=== PATIENT | male | born 1990 | race Caucasian/White ===

== ENCOUNTER 2017-11-27 12:27 | Emergency (ER) | payer OTHER ==
--- NOTE | 2017-11-27 13:09 | EDM.PDOC ---
ED HPI GENERAL MEDICAL PROBLEM - General Chief Complaint: Flank Pain Stated Complaint: KIDNEY PAIN SENT BY [facility] Time Seen by Provider: 11/27/17 12:46 Source of Information: Reports: Patient History Limitations: Reports: No Limitations - History of Present Illness INITIAL COMMENTS - FREE TEXT/NARRATIVE: 27 year old male presents for evaluation and treatment of left-sided flank pain. Patient reports he first started having bilateral flank pain about 2 or 3 days ago. He states that the pain comes and goes and is worse in the evening. He states that at night he can not sit down and can not get comfortable due to the pain. Is now located just on the left side. He denies any associated fevers , dysuria, hematuria, nausea, vomiting, diarrhea or constipation. He states he was ill with a cold on Wednesday and had some fevers and chills but his symptoms have resolved. reports that he did have some riggors last night. Past surgical history includes an appendectomy. Patient denies any history of kidney stones. Patient was seen at the [facility] prior to coming to the ER. He had labs including a UA and CBC done. UA showed a small amount of blood. Hemoglobin was 14.5, white blood cell count 8.4 and platelets 185. Was sent to us for a CT scan. Duration: Day(s): (3) Lower Back Pain Score (Numeric/FACES): 4 - Related Data Allergies Allergy/AdvReac Type Severity Reaction Status Date / Time No Known Allergies Allergy Verified 11/27/17 12:36 Home Meds: Home Meds . [No Known Home Meds] 11/27/17 [History] Past Medical History - Past Surgical History GI Surgical History: Reports: Appendectomy Social & Family History - Tobacco Use Smoking Status *Q: Never Smoker - Caffeine Use Caffeine Use: Reports: Coffee - Recreational Drug Use Recreational Drug Use: No ED ROS GENERAL - Review of Systems Review Of Systems: See Below Constitutional: Reports: Chills. Denies: Fever GI/Abdominal: Denies: Abdominal Pain, Constipation, Diarrhea, Nausea, Vomiting : Reports: Flank Pain (left). Denies: Dysuria, Hematuria Musculoskeletal: Reports: Back Pain (left mid back) ED EXAM, RENAL/ - Physical Exam Exam: See Below Exam Limited By: No Limitations General Appearance: Alert, WD/WN, No Apparent Distress Ears: Normal External Exam Nose: Normal Inspection Throat/Mouth: Normal Inspection, Normal Lips, Normal Voice, No Airway Compromise Respiratory/Chest: No Respiratory Distress, Lungs Clear, Normal Breath Sounds Cardiovascular: Normal Peripheral Pulses, Regular Rate, Rhythm, No Murmur GI/Abdominal: Normal Bowel Sounds, Soft, Non-Tender. No: Distended, Rebound Back Exam: Normal Inspection, CVA Tenderness (L). No: CVA Tenderness (R) Neurological: Alert, Oriented, Normal Cognition Psychiatric: Normal Affect, Normal Mood Skin Exam: Warm, Dry, No Rash Course - Vital Signs Last Recorded V/S: Last Vital Signs Temp 36.3 C 11/27/17 12:33 Pulse 81 11/27/17 12:33 Resp 16 11/27/17 12:33 BP 163/104 H 11/27/17 12:33 Pulse Ox 99 11/27/17 12:33 - Radiology Interpretation Free Text/Narrative:: CT abdomen and pelvis Technique: Multiple axial sections were obtained from above the kidneys inferiorly through the pubic symphysis. Intravenous and oral contrast not utilized. Study has been performed as a ureteral stone protocol. Comparison: No prior abdominal imaging. Findings: Right and left kidneys showed no hydronephrosis. No abnormal calcifications are seen along the course of the ureters. No bladder calculi are seen. No renal calculi are seen. Visualized lung bases are clear. Visualized noncontrast appearance of the liver and spleen appears within normal limits. Adrenal glands show no nodule. Pancreas appears within normal limits. Aorta shows no aneurysmal dilatation. Gallbladder contains no calcified gallstones. No retroperitoneal adenopathy or mesenteric abnormalities are seen. No pelvic mass or adenopathy is seen. No free fluid or inflammatory change is seen. Appendix not visualized with certainty. Small mesenteric lymph nodes are seen which are felt to be within normal limits. Mild increased stool is seen throughout the colon. Bone window settings were reviewed which show scoliosis with spine. Osseous structures otherwise are within normal limits for the patient's age. Impression: 1. No renal calculi, ureteral dilatation or ureteral stone is seen. 2. Mild increased stool is seen throughout the colon. Mild scoliosis is present within the spine. 3. No additional abnormality is seen on noncontrast CT study of the abdomen performed as a ureteral stone protocol. - Re-Assessments/Exams Free Text/Narrative Re-Assessment/Exam: 11/27/17 14:[address] results with the patient. Will discharge him home at this time. Discharge instructions as documented. Departure - Departure Time of Disposition: 14:31 Disposition: Home, Self-Care 01 Condition: Good Clinical Impression: Constipation - Discharge Information Referrals: PCP,None [Primary Care Provider] - Forms: ED Department Discharge Additional Instructions: Drink one bottle of magnesium citrate over 1-2 hours. This is available OTC. This can cause some abdominal cramping. You should have 1-2 large bowel movements after drinking this. Drink plenty of fluids. For daily bowel maintenance, recommend miralax daily. This is also available OTC. Follow-up with family medicine if your symptoms do not improve. Please return to the ER should your symptoms change or worsen.
--- NOTE | 2017-11-27 14:10 | CT ---
CT abdomen and pelvis Technique: Multiple axial sections were obtained from above the kidneys inferiorly through the pubic symphysis. Intravenous and oral contrast not utilized. Study has been performed as a ureteral stone protocol. Comparison: No prior abdominal imaging. Findings: Right and left kidneys showed no hydronephrosis. No abnormal calcifications are seen along the course of the ureters. No bladder calculi are seen. No renal calculi are seen. Visualized lung bases are clear. Visualized noncontrast appearance of the liver and spleen appears within normal limits. Adrenal glands show no nodule. Pancreas appears within normal limits. Aorta shows no aneurysmal dilatation. Gallbladder contains no calcified gallstones. No retroperitoneal adenopathy or mesenteric abnormalities are seen. No pelvic mass or adenopathy is seen. No free fluid or inflammatory change is seen. Appendix not visualized with certainty. Small mesenteric lymph nodes are seen which are felt to be within normal limits. Mild increased stool is seen throughout the colon. Bone window settings were reviewed which show scoliosis with spine. Osseous structures otherwise are within normal limits for the patient's age. Impression: 1. No renal calculi, ureteral dilatation or ureteral stone is seen. 2. Mild increased stool is seen throughout the colon. Mild scoliosis is present within the spine. 3. No additional abnormality is seen on noncontrast CT study of the abdomen performed as a ureteral stone protocol. Diagnostic code #2
== END 2017-11-27 14:45 | disposition home or self-care (01) ==
LOC: JD.ED 12:27
DX: K59.00 Constipation, unspecified (principal)
CPT/HCPCS: 74176; 74176-26; 99283; 99284-25

== ENCOUNTER 2017-11-29 17:56 | Emergency (ER) | payer OTHER ==
--- NOTE | 2017-11-29 20:29 | EDM.PDOC ---
ED HPI GENERAL MEDICAL PROBLEM - General Chief Complaint: Abdominal Pain Stated Complaint: CONSTIPATION Time Seen by Provider: 11/29/17 19:36 Source of Information: Reports: Patient, Old Records, Significant Other ( Girlfriend) History Limitations: Reports: No Limitations - History of Present Illness INITIAL COMMENTS - FREE TEXT/NARRATIVE: The patient states that he has had low back pain since , 11/25/2017. He was seen in this ED on 11/27/2017, where a CT scan of the abdomen and pelvis without contrast revealed mild increased stool throughout the colon. The patient was discharged home. He states that he drank a whole bottle of magnesium citrate that same day, along with milk of magnesia, then drank a second bottle of magnesium citrate yesterday, 11/28/2017. He states that he had some stool output, but not a lot. He now re-presents to the ED complaining of continued lower abdominal and low back pain. His abdominal pain is crampy in character. It waxes and wanes. He has not identified any modifiers. He denies having any nausea or vomiting. No recent fever. No urinary symptoms. The patient does not have a PCP. Abdominal Pain Score (Numeric/FACES): 6 - Related Data Allergies Allergy/AdvReac Type Severity Reaction Status Date / Time No Known Allergies Allergy Verified 11/29/17 18:35 Home Meds: Home Meds . [No Known Home Meds] 11/27/17 [History] Past Medical History - Past Surgical History GI Surgical History: Reports: Appendectomy Social & Family History - Tobacco Use Smoking Status *Q: Never Smoker Second Hand Smoke Exposure: No - Caffeine Use Caffeine Use: Reports: Coffee - Recreational Drug Use Recreational Drug Use: No ED ROS GENERAL - Review of Systems Review Of Systems: ROS reveals no pertinent complaints other than HPI. ED EXAM, GI/ABD - Physical Exam Exam: See Below Exam Limited By: No Limitations General Appearance: Alert, WD/WN, No Apparent Distress Eyes: Bilateral: Normal Appearance, EOMI Ears: Normal External Exam, Hearing Grossly Normal Nose: Normal Inspection, No Blood Throat/Mouth: Normal Inspection, Normal Lips, Normal Voice, No Airway Compromise Head: Atraumatic, Normocephalic Neck: Normal Inspection, Full Range of Motion Respiratory/Chest: No Respiratory Distress, Lungs Clear, Normal Breath Sounds, No Accessory Muscle Use Cardiovascular: Normal Peripheral Pulses, Regular Rate, Rhythm, No Gallop, No JVD, No Murmur, No Rub GI/Abdominal Exam: Normal Bowel Sounds, Soft, Non-Tender (including to the lower abdomen), No Organomegaly, No Distention, No Abnormal Bruit, No Mass (Male) Exam: Deferred Rectal (Males) Exam: Deferred Back Exam: Normal Inspection, Full Range of Motion. No: CVA Tenderness (L), CVA Tenderness (R) Extremities: Normal Inspection, Normal Range of Motion, No Pedal Edema, Normal Capillary Refill Neurological: Alert, Oriented, Normal Cognition, No Motor/Sensory Deficits Psychiatric: Normal Affect Skin Exam: Warm, Dry, Intact, Normal Color, No Rash Course - Vital Signs Last Recorded V/S: Last Vital Signs Temp 36.5 C 11/29/17 18:32 Pulse 68 11/29/17 18:32 Resp 18 11/29/17 18:32 BP 125/78 11/29/17 18:32 Pulse Ox 99 11/29/17 18:32 - Re-Assessments/Exams Free Text/Narrative Re-Assessment/Exam: 11/29/17 20:22 Upright abdominal film appears to demonstrate numerous air-fluid levels in a stepwise pattern, consistent with a small bowel obstruction. No significant stool is seen. Formal read per the Radiologist pending. 11/29/17 20:29 X-ray results discussed with the patient and his girlfriend. The patient has not had any nausea or emesis, just abdominal pain. He likely has an early or partial SBO. I offered to admit the patient for IV fluid, ambulation of the halls, and surgical consult, should his symptoms worsen, however, the patient would prefer to go home. I'm recommending that he eat a low fiber diet presently. The patient agrees to return to the ED if his symptoms worsen. Departure - Departure Time of Disposition: 20:30 Disposition: Home, Self-Care 01 Condition: Fair Clinical Impression: Partial small bowel obstruction - Discharge Information Instructions: Small Bowel Obstruction, [id number] Referrals: PCP,None [Primary Care Provider] - Forms: ED Department Discharge Additional Instructions: You were seen in the emergency room for continued lower abdominal pain. Workup in the ER included x-rays of your abdomen, which appear to show either an early small bowel obstruction, or a partial small bowel obstruction. You were offered admission to the hospital, but declined. Stay adequately hydrated, and eat a low-fiber diet until your symptoms resolve. Stay active. Walking is best. If your symptoms worsen, or if you develop nausea/vomiting, please return to the ER for further evaluation.
--- NOTE | 2017-11-30 10:28 | CR ---
Abdomen: Upright view of the abdomen was obtained. Comparison: No prior abdominal x-ray, previous noncontrast CT renal stone study of 11/27/17. Air-fluid levels are identified within the colon and within small bowel. No significant bowel dilatation is seen. No abnormal calcifications or free air is identified. Mild scoliosis is noted within the spine. Impression: 1. Air-fluid levels within colon and small bowel. These are nonspecific and may be incidental if patient has no symptoms of gastroenteritis or diarrhea. 2. Other incidental findings. Diagnostic code #3
== END 2017-11-29 20:40 | disposition home or self-care (01) ==
LOC: JD.ED 17:56
DX: K56.600 Partial intestinal obstruction, unspecified as to cause (principal)
CPT/HCPCS: 74018; 74018-26; 99283

== ENCOUNTER 2021-05-06 22:06 | Emergency (ER) | payer OTHER ==
--- NOTE | 2021-05-06 23:11 | EDM.PDOC ---
ED HPI GENERAL MEDICAL PROBLEM - General Chief Complaint: Upper Extremity Injury/Pain Stated Complaint: SMASHED FINGER ON LEFT HAND Time Seen by Provider: 05/06/21 22:48 Source of Information: Reports: Patient History Limitations: Reports: No Limitations - History of Present Illness INITIAL COMMENTS - FREE TEXT/NARRATIVE: Mr. Beach is a very pleasant 31-year-old gentleman who now presents the ED after injuring his left second finger around 18:00. He states that he dropped a hot tub onto his finger, which was on the garage floor, at home. He immediately developed a "black nail" = subungual hematoma, although he states that the pain did not develop until an hour or so later. His subsequently heated up a needle and performed a trephination to the proximal fingernail, releasing some blood, however, the patient states that his distal finger is still quite painful and throbbing. He is concerned that it is broken. No prior left second finger injury. The patient states that he took 2 ibuprofen around 20:00. Here in the ED, the patient's initial BP is found to be elevated 168/114, otherwise, he is hemodynamically stable, afebrile, saturating 96% on room air. He appears to be relatively comfortable, in no acute distress. Prior to this evening, the patient denies having a recent fever, chills, sore throat, ear pain, nasal or sinus congestion, cough, dyspnea, chest pain, palpitations, nausea, vomiting, constipation, diarrhea, abdominal pain, urinary symptoms, recent weight gain or weight loss, recent bloody bowel movements or black bowel movements, recent joint aches, headaches, or rashes. I reviewed the PMHx/PSHx/SocHx, which was reviewed with the patient by the RN. The patient does not have a PCP. Left Finger-Index Pain Score (Numeric/FACES): 7 - Related Data Allergies Allergy/AdvReac Type Severity Reaction Status Date / Time No Known Allergies Allergy Verified 05/06/21 22:15 Home Meds: Home Meds . [No Known Home Meds] 11/27/17 [History] Past Medical History - Past Health History Medical/Surgical History: Denies Medical/Surgical History - Infectious Disease History Infectious Disease History: Reports: None - Past Surgical History GI Surgical History: Reports: Appendectomy Social & Family History - Tobacco Use Tobacco Use Status *Q: Never Tobacco User Second Hand Smoke Exposure: No - Caffeine Use Caffeine Use: Reports: Coffee - Recreational Drug Use Recreational Drug Use: No Review of Systems - Review of Systems Review Of Systems: Comprehensive ROS is negative, except as noted in HPI. ED EXAM, GENERAL - Physical Exam Exam: See Below Exam Limited By: No Limitations General Appearance: Alert, WD/WN, No Apparent Distress Extremities: Other (The patient's left second finger has an approximately 90% subungual hematoma, however, the proximal edge does not quite cross the cuticle line, which is where the patient's had trephinated the nail. Only a small amount of blood was escaping from this trephination hole. The finger otherwise ap) ED TRAUMA EXTREMITY PROCEDURES - Additional/Other Procedure(s) Other (Free Text) Procedure(s): Procedure: Left 2nd fingernail trephination Indication: Subungual hematoma Method: Electrocautery The patient tolerated the procedure well, with good effect. Course - Vital Signs Last Recorded V/S: Last Vital Signs Temp 36.7 C 05/06/21 22:13 Pulse 75 05/06/21 22:13 Resp 18 05/06/21 22:13 BP 168/114 H 05/06/21 22:13 Pulse Ox 96 05/06/21 22:13 - Orders/Labs/Meds Orders: Active Orders 24 hr Category Date Time Status Fingers Second Digit Lt F1 [CR] Stat Exams 05/06/21 22:33 Taken - Re-Assessments/Exams Free Text/Narrative Re-Assessment/Exam: 05/06/21 23:06 As above, the patient crushed the distal end of his left index finger around 18:00 this evening, developing a subungual hematoma, which his attempted to trephinate at home, however, she trephinated at the proximal edge of the subungual hematoma, not in the middle of it. Nevertheless, there was a small amount of blood coming from the hole, however, the patient was not getting any relief of pain from his finger, therefore he came to the ED to make sure that his finger is not broken. 4-view radiographs of the left second finger appear to be grossly normal, with no fracture or dislocation identified. Formal read per the Radiologist pending. I offered to trephinate the patient's fingernail, to see if he might get better relief of discomfort. He agreed. I then trephinated the center of the nail using electrocautery, to good effect, with more blood escaping than I had anticipated. The patient reported immediate improvement in his pain. I advised the patient to keep the nail clean with ordinary soap and water when he bathes, and to apply a Band-Aid, to catch any blood that might leak over the next few days. Departure - Departure Time of Disposition: 23:08 Disposition: Home, Self-Care 01 Condition: Good Clinical Impression: Subungual hematoma of left index finger - Discharge Information *PRESCRIPTION DRUG MONITORING PROGRAM REVIEWED*: Not Applicable *COPY OF PRESCRIPTION DRUG MONITORING REPORT IN PATIENT ANTONELLA: Not Applicable Instructions: Nail Bed Injury, [id number] Referrals: PCP,None [Primary Care Provider] - Forms: ED Department Discharge Additional Instructions: You were seen in the emergency room after crushing the tip of your left index finger. Work-up in the ER included x-rays of your left finger, which returned normal. No broken bones or dislocations were found. On examination, you had a subungual hematoma of your fingernail, which your had attempted to trephinate at home, however, she trephinated the proximal edge of the hematoma, not the center. Trephination of the center of the hematoma was offered, and performed, with good effect. Keep the fingernail clean with ordinary soap and water when you bathe. You should then apply a clean Band-Aid to catch any fingernail bleeding, for the next few days. You may take [id number] ibuprofen, 3 tablets (600 mg) up to every 8 hours, with food, as needed for discomfort. If any other problems, please do not hesitate to return to the ER. Sepsis Event Note (ED) - Evaluation Sepsis Screening Result: No Definite Risk - Focused Exam Vital Signs: Vital Signs Temp Pulse Resp BP Pulse Ox 05/06/21 22:13 36.7 C 75 18 168/114 H 96 - My Orders Last 24 Hours: My Active Orders 05/06/21 22:33 Fingers Second Digit Lt F1 [CR] Stat - Assessment/Plan Last 24 Hours: My Active Orders 05/06/21 22:33 Fingers Second Digit Lt F1 [CR] Stat
--- NOTE | 2021-05-07 11:27 | CR ---
Left second finger: 4 views centered to the left second finger were obtained. Comparison: No previous study. Joint spaces are preserved. No acute fracture, dislocation or other bony abnormality is appreciated. Mild soft tissue swelling is noted. Impression: 1. Mild soft tissue swelling. 2. No acute osseous abnormality is appreciated on left second finger exam. Diagnostic code #2
== END 2021-05-06 23:15 | disposition home or self-care (01) ==
LOC: JD.ED 22:06
DX: S60.022A Contusion of left index finger without damage to nail, initial encounter (principal); W20.8XXA Other cause of strike by thrown, projected or falling object, initial encounter
CPT/HCPCS: 11740; 73140-26-F1; 73140-F1; 99282; 99283-25